=== PATIENT | female | born 1945 | race Caucasian/White ===

== ENCOUNTER → 2018-01-07 | Outpatient (CLI) | payer MEDICARE | END | disposition home or self-care (01) | LOC: RAH 12:51 | PROVIDERS: ATTEND Internal Medicine Nephrology | DX: M47.895 Other spondylosis, thoracolumbar region (principal) | CPT/HCPCS: 71046 ==

== ENCOUNTER → 2018-02-01 | Outpatient (CLI) | payer MEDICARE | END | disposition home or self-care (01) | LOC: RAH 10:40 | PROVIDERS: ATTEND Internal Medicine Nephrology | DX: R92.8 Other abnormal and inconclusive findings on diagnostic imaging of breast (principal); Z98.82 Breast implant status; T85.628A Displacement of other specified internal prosthetic devices, implants and grafts, initial encounter | CPT/HCPCS: 77066 ==

== ENCOUNTER 2018-04-13 22:27 | Emergency (ER) | payer MEDICARE ==
[2018-04-14] MEDS ORDERED: HYDROCODONE/ACETAMINOPHEN 10/325 MG TAB ONE (00:12)
[2018-04-14] MEDS ORDERED: LORAZEPAM 2 MG/ML 1 ML VIAL ONE (00:13)
== END 2018-04-14 00:30 | disposition home or self-care (01) ==
LOC: EDH 22:27
DX: M62.830 Muscle spasm of back (principal); M54.6 Pain in thoracic spine; I12.9 Hypertensive chronic kidney disease with stage 1 through stage 4 chronic kidney disease, or unspecified chronic kidney disease; N18.4 Chronic kidney disease, stage 4 (severe); Z88.6 Allergy status to analgesic agent; Z91.041 Radiographic dye allergy status; Z88.8 Allergy status to other drugs, medicaments and biological substances
CPT/HCPCS: 96372; 99283; J2060